=== PATIENT | female | born 1965 | race Caucasian/White ===

== ENCOUNTER 2021-03-03 17:05 | Emergency (ER) | payer SELFPAY ==
[2021-03-03 17:10] VITALS: BP 147/95; PULSE 86; RESP 20; TEMP 37.2; O2SAT 100
--- NOTE | 2021-03-03 17:26 | ED.FEMALEGU ---
HPI - Female Genitourinary General Chief complaint: Urogenital-Female Stated complaint: poss uti Time Seen by Provider: 03/03/21 17:26 Source: patient History of Present Illness HPI Narrative: Patient presents with burning with urination and frequency for the past 9 days. Patient denies any concern for STDs but does feel that she has bacterial vaginitis. Patient states she has a history of BV. And would like treated for today. No back pain no abdominal pain no pelvic pain no vaginal discharge. MD elicited complaint: dysuria and UTI Related Data Allergies Allergy/AdvReac Type Severity Reaction Status Date / Time egg Allergy Unknown Unknown Unverified 03/03/21 17:16 ibuprofen Allergy Unknown Palpitation Verified 03/03/21 17:28 s Sulfa (Sulfonamide Allergy Unknown Rash Verified 03/03/21 17:28 Antibiotics) albuterol Allergy Blister Verified 03/03/21 17:28 amoxicillin AdvReac Unknown Diarrhea Unverified 03/30/17 10:35 cephalexin AdvReac Unknown Diarrhea Verified 03/30/17 10:35 Review of Systems Review of Systems: CONSTITUTIONAL: Denies fever, chills, or sweats. EYES: Denies visual changes, redness, or discharge. ENT: Denies rhinorrhea, congestion, sore throat, or otalgia. CARDIOVASCULAR: Denies chest pain, palpitations, or edema. RESPIRATORY: Denies cough or dyspnea. GASTROINTESTINAL: Denies abdominal pain, nausea, vomiting, or diarrhea. GENITOURINARY: Denies dysuria or hematuria. SKIN: Denies rash or itching. MUSCULOSKELETAL: Denies back pain, joint pain, or myalgia. NEUROLOGIC: Denies headache, numbness, or weakness. PSYCHIATRIC: Denies anxiety or depression. PMFSH Social History Social History Smoking status: Never smoker Alcohol intake: never Comments At time of signature, agree with nursing past medical, surgical, social and family history. There is no relevant family history pertinent to the presenting complaint Exam Narrative: GENERAL: Well-appearing, well-nourished, and in no acute distress. HEAD: Normocephalic, atraumatic. EYES: PERRLA and EOMI. ENT: Nares clear, no rhinorrhea or epistaxis. Mucous membranes moist. NECK: Supple. CHEST: Clear to auscultation. No respiratory distress. HEART: Regular rate and rhythm. No murmur heard. Normal peripheral pulses. ABDOMEN: Soft, nontender, nondistended, normal active bowel sounds. EXTREMITIES: Normal range of motion. No edema. SKIN: Warm, dry, no rash. NEURO: No focal deficits. Alert and oriented x3. Rochert Coma Scale Eye Opening: Spontaneous 4 Shruti Coma Scale Motor: Obeys Commands 6 Rochert Coma Scale Verbal: Oriented 5 Shruti Coma Scale Total 15 Course Vital Signs Vital signs: Vital Signs Temperature 37.2 C 03/03/21 17:10 Pulse Rate 86 03/03/21 17:10 Respiratory Rate 20 03/03/21 17:10 Blood Pressure 147/95 H 03/03/21 17:10 Pulse Oximetry 100 03/03/21 17:10 Temperature 37.2 C 03/03/21 17:10 Pulse Rate 86 03/03/21 17:10 Respiratory Rate 20 03/03/21 17:10 Blood Pressure 147/95 H 03/03/21 17:10 Pulse Oximetry 100 03/03/21 17:10 Addressed elevated BP today. Today's blood pressure higher than recommended range. Discussed importance of follow -up with PCP and possible parts counterman effects/cardiovascular events related to HTN. Currently patient denies headache, dizziness, vision changes, CP or shortness of breath. Regarding diagnosis, Regarding diagnostic results, Regarding treatment plan, Regarding prescription, Patient indicated understanding of instructions. Critical dx considered and discussed with pt. Educated patient on red flag s/s and to go to ED if s/s occur. Discussed with pt when to return to [facility] or primary care provider. Pt gave verbal undertstanding, all questions were answered, and pt was agreeable to plan.. MDM - Female Genitourinary Differential Diagnosis Differential diagnosis: Likely urinary tract infection, bacterial vaginosis, trichomoniasis, cervicitis, ovarian cyst, vaginitis, ru
== END 2021-03-03 17:40 | disposition home or self-care (01) ==
PROVIDERS: Emergency Provider Nurse Practitioner Family; PCP Internal Medicine
DX: N39.0 Urinary tract infection, site not specified (principal); N76.0 Acute vaginitis; Z86.16 Personal history of COVID-19
CPT/HCPCS: 81003; 87077; 87086; 87088; 87186; 99203; G0463

== ENCOUNTER → 2021-04-18 10:35 | Outpatient (CLI) | payer SELFPAY ==
--- NOTE | ~2021-04-18 | XR_ITS ---
EXAMINATION: XR chest 2V EXAM DATE: 04/18/2021 10:58 INDICATION: Chest tightness, cough . TECHNIQUE: Frontal and lateral projections of the chest obtained and reviewed. There is no prior isabell dy for comparison. FINDINGS: The lungs are clear. There are no pleural effusions. The cardiomediastinal silhouette i s within normal limits. There is no pneumothorax suspected. The bones and soft tissues are unremark able. IMPRESSION: No acute cardiopulmonary findings. Reviewed, dictated and finalized at location A.
== END ==
PROVIDERS: PCP Nurse Practitioner; Visit Provider Nurse Practitioner
DX: R07.89 Other chest pain (principal); R05.9 Cough, unspecified
CPT/HCPCS: 71046

== ENCOUNTER → 2022-09-05 14:38 | Outpatient (CLI) | payer SELFPAY ==
--- NOTE | ~2022-09-05 | CT_ITS ---
EXAMINATION: CT cervical spine wo con DATE: 09/05/2022 15:02 INDICATION: Head injury TECHNIQUE: Computed tomography (CT) of the cervical spine was performed without intravenous contrast. The dose-length product (DLP) was 118.43 mGy-cm. Automated exposure control and iterative reconstruc tion technique were employed. COMPARISON: None FINDINGS: Bone alignment is normal. There is no fracture. There is moderate loss of intervertebral di sc space height at C5-C6 and mild loss of intervertebral disc space height at C4-5 and C6-7. The vert ebral body heights are maintained The odontoid process is intact. The prevertebral soft tissues are n ormal. Small degenerative osteophytes project from the anterior endplates of multiple vertebral vasyl s. There is multilevel mild facet and uncovertebral joint osteoarthritis. IMPRESSION: 1. Mild cervical spondylosis without acute findings. Reviewed, dictated and finalized at location F. AGE CALLER
--- NOTE | ~2022-09-05 | CT_ITS ---
EXAMINATION: CT brain wo con INDICATION: Head injury COMPARISON: None TECHNIQUE: Standard unenhanced head CT. The dose-length product (DLP) was 599.57 mGy-cm. The mA was a djusted according to patient size. Iterative reconstruction technique was employed. FINDINGS: There is no intracranial hemorrhage, acute infarction, or abnormal mass lesion. The ventric les are normal. There is no abnormal mass effect or midline shift. The grove-white matter differentiat ion is normal. The basal cisterns are patent. The orbits are normal. The paranasal sinuses, mastoids and calvarium are normal. IMPRESSION: 1. No acute intracranial abnormality. Reviewed, dictated and finalized at location F. CAR DISPATCHER
== END ==
PROVIDERS: Visit Provider Nurse Practitioner
DX: R51.9 Headache, unspecified (principal); V89.2XXD Person injured in unspecified motor-vehicle accident, traffic, subsequent encounter; M43.02 Spondylolysis, cervical region
CPT/HCPCS: 70450; 72125

== ENCOUNTER 2024-02-22 09:51 | Emergency (ER) | payer SELFPAY ==
--- NOTE | ~2024-02-22 | XR_ITS ---
EXAMINATION: XR chest 2V DATE: 02/22/2024 10:52 INDICATION: Chronic cough TECHNIQUE: PA and lateral views of the chest were obtained. COMPARISON: Chest radiograph dated 04/18/2021 FINDINGS: The lungs are clear with no focal airspace opacities, pulmonary edema, pleural effusion or pneumothor ax. The cardiomediastinal silhouette is normal. Bilateral breast implants. IMPRESSION: 1. No acute cardiopulmonary disease. Reviewed, dictated and finalized at location A.
[2024-02-22 10:06] VITALS: BP 136/81; PULSE 86; RESP 19; TEMP 36.8; O2SAT 100
[2024-02-22 10:38] LABS: EDINFLUASCREEN Negative; EDINFLUBSCREEN Negative
--- NOTE | 2024-02-22 10:46 | ED.URI ---
HPI - URI/Sore Throat General Chief Complaint: Upper Respiratory Infection Stated Complaint: hard to breathe when outdoors Time Seen by Provider: 02/22/24 10:28 Source: patient and RN notes reviewed Mode of arrival: ambulatory Limitations: no limitations History of Present Illness HPI Narrative: Patient presents today with a 1 month history of throat cough and chest tightness when she goes outside in the heat. Symptoms resolve when she comes inside in the air conditioning. States symptoms have been worsening for the past 2 weeks. At onset of symptoms, patient was seen at her PCPs office and she was given a Xopenex inhaler which she states is helpful. Associated symptoms include one-month history of congestion, 2 week history of postnasal drip. She also reports some chest wall pain with coughing. Denies history of asthma or COPD. Denies history of environmental allergies. Related Data Home Medications Medication Instructions Recorded Confirmed dextroamphetamine-amphetamine 10 10 mg PO DAILY 02/22/24 02/22/24 mg tablet (Adderall) levalbuterol tartrate 45 1 puff inhalation Q4-5H PRN 02/22/24 02/22/24 mcg/actuation aerosol inhaler wheezing or SOB Allergies Allergy/AdvReac Type Severity Reaction Status Date / Time albuterol Allergy Intermediate Blister Verified 02/22/24 10:27 egg Allergy Unknown Unknown Verified 02/22/24 09:54 ibuprofen Allergy Unknown Palpitation Verified 02/22/24 09:54 s Sulfa (Sulfonamide Allergy Unknown Rash Verified 02/22/24 09:54 Antibiotics) amoxicillin AdvReac Unknown Diarrhea Verified 02/22/24 09:54 cephalexin AdvReac Unknown Diarrhea Verified 02/22/24 09:54 clavulanic acid AdvReac Diarrhea Verified 02/22/24 10:30 [From Augmentin] Review of Systems Review of Systems: CONSTITUTIONAL: Denies body aches, fever, chills, or sweats. EYES: Denies visual changes, redness, or discharge. ENT: Denies rhinorrhea, sore throat, or otalgia.+ congestion, postnasal drip CARDIOVASCULAR: Denies chest pain, palpitations, or edema. RESPIRATORY: Denies dyspnea.+ cough, chest wall pain GASTROINTESTINAL: Denies abdominal pain, nausea, vomiting, or diarrhea. GENITOURINARY: Denies dysuria or hematuria. SKIN: Denies rash, itching, or wounds. MUSCULOSKELETAL: Denies back pain, joint pain, or myalgia. NEUROLOGIC: Denies headache, numbness, tingling, or weakness. PSYCH: Denies depression or anxiety. PMFSH Social History Social History Smoking status: Never smoker Alcohol intake: never Comments At time of signature, I have reviewed and agree with nursing past medical, surgical, social and family history unless otherwise noted. Please see nursing chart for further information. There is no relevant family history pertinent to the presenting complaint Exam Narrative: GENERAL: Well-appearing, well-nourished, and in no acute distress. HEAD: Normocephalic, atraumatic. EYES: EOMI. No redness or drainage. Conjunctivae normal. ENT: Mucous membranes pink and moist. Nares clear. No rhinorrhea. TMs normal bilaterally. Throat normal. Uvula midline. NECK: Normal AROM. Supple. No lymphadenopathy. CHEST: No respiratory distress. Clear to auscultation. HEART: Regular rate and rhythm. No murmur appreciated. EXTREMITIES: Normal range of motion. No edema. SKIN: Warm, dry, no rash. Capillary refill normal. Normal skin turgor. NEURO: No focal deficits. Alert and oriented x3. Gait steady. PSYCH: Normal affect. No signs of depression or anxiety. Course Course Level of Care: Express Care Visit Vital Signs Vital signs: Vital Signs Temperature 98.2 F 02/22/24 10:06 Pulse Rate 86 02/22/24 10:06 Respiratory Rate 19 02/22/24 10:06 Blood Pressure 136/81 02/22/24 10:06 Pulse Oximetry 100 02/22/24 10:06 Oxygen Delivery Room Air 02/22/24 10:06 Temperature 98.2 F 02/22/24 10:06 Pulse Rate 86 02/22/24 10
== END 2024-02-22 11:23 | disposition home or self-care (01) ==
PROVIDERS: Emergency Provider Nurse Practitioner
DX: J40 Bronchitis, not specified as acute or chronic (principal); Z20.822 Contact with and (suspected) exposure to COVID-19; Z86.16 Personal history of COVID-19
CPT/HCPCS: 71046; 87426; 87804; 99213; G0463

== ENCOUNTER 2024-03-16 08:36 | Emergency (ER) | payer SELFPAY ==
[2024-03-16 08:44] VITALS: BP 143/87; PULSE 84; RESP 20; TEMP 36.6; O2SAT 100
--- NOTE | 2024-03-16 08:51 | ED.EYEPROB ---
HPI - Eye Problem General Chief complaint: Eye Problems Stated complaint: Right Eye Irritation Time Seen by Provider: 03/16/24 08:51 Source: patient and RN notes reviewed Mode of arrival: ambulatory Limitations: no limitations History of Present Illness HPI Narrative: 58-year-old female presents with concern for right eyelid swelling and redness. Reports 5 days ago she woke up with a bump on her eyelid that she thought was a stye. She got this bump after using a new makeup. She reports she tried to pop it with tweezers without success. Reports the next day the upper and lower eyelid became red and swollen. She denies pain. She reports itching of the eyelid. She denies visual changes, eye redness, itching, pain. She reports she uses a warm compress which helps a swelling temporarily. MD chief complaint: other (eyelid swelling) Related Data Home Medications Medication Instructions Recorded Confirmed dextroamphetamine-amphetamine 10 10 mg PO DAILY 02/22/24 03/16/24 mg tablet (Adderall) levalbuterol tartrate 45 1 puff inhalation Q4-5H PRN 02/22/24 03/16/24 mcg/actuation aerosol inhaler wheezing or SOB Allergies Allergy/AdvReac Type Severity Reaction Status Date / Time albuterol Allergy Intermediate Blister Verified 03/16/24 08:39 egg Allergy Unknown Unknown Verified 03/16/24 08:39 ibuprofen Allergy Unknown Palpitation Verified 03/16/24 08:39 s Sulfa (Sulfonamide Allergy Unknown Rash Verified 03/16/24 08:39 Antibiotics) amoxicillin AdvReac Unknown Diarrhea Verified 03/16/24 08:39 cephalexin AdvReac Unknown Diarrhea Verified 03/16/24 08:39 clavulanic acid AdvReac Diarrhea Verified 03/16/24 08:39 [From Augmentin] Review of Systems Review of Systems: CONSTITUTIONAL: Denies malaise, chills, sweats, or fever. EYES: Denies visual changes. Denies eye redness, irritation, discharge. ENT: Denies rhinorrhea, congestion, sinus pain, otalgia or sore throat. SKIN: Reports right upper eyelid swelling, redness, and itching NEUROLOGIC: Denies numbness, weakness, or headache. PSYCHIATRIC: Denies anxiety or depression. All systems reviewed & are unremarkable except as noted in HPI and below PMFSH Social History Social History Smoking status: Never smoker Alcohol intake: never Comments At time of signature, agree with nursing past medical, surgical, social and family history. There is no relevant family history pertinent to the presenting complaint Exam Narrative: GENERAL: Well-appearing, well-nourished, and in no acute distress. HEAD: Normocephalic, atraumatic. EYES: PERRLA, sclera clear, and EOMI. No nystagmus. Bilateral conjunctivae and sclera clear. Left Upper and lower eyelid unremarkable, no periorbital edema noted. Right upper and lower eyelid mildly erythematous, edematous, slightly warm ENT: Nares clear. Mucous membranes moist. NECK: Supple. CHEST: No respiratory distress. Speaks in full sentences. HEART: Regular rate and rhythm. SKIN: Warm, dry, no visible rash. NEURO: Alert and oriented x3. PSYCH: Normal mood and affect Course Course Emergency Course: Patient is aware of diagnosis, understands and agrees to treatment plan. Anticipatory guidance given. Patient agrees to follow-up as directed and is aware of reasons to seek care at the emergency department. Portions of this record may have been created with voice recognition software Level of Care: [facility] Visit Vital Signs Vital signs: Vital Signs Temperature 98 F 03/16/24 08:44 Pulse Rate 84 03/16/24 08:44 Respiratory Rate 03/16/24 08:44 Blood Pressure 143/87 H 03/16/24 08:44 Pulse Oximetry 100 03/16/24 08:44 Oxygen Delivery Room Air 03/16/24 08:44 Temperature 98 F 03/16/24 08:44 Pulse Rate 84 03/16/24 08:44 Respiratory Rate 20 03/16/24 08:44 Blood Pressure 143/87 H 03/16/24 08:44 Pulse Oximetry 100 03/16/24 08
== END 2024-03-16 09:10 | disposition home or self-care (01) ==
PROVIDERS: Emergency Provider Nurse Practitioner
DX: A46 Erysipelas (principal); Z86.16 Personal history of COVID-19
CPT/HCPCS: 99213; G0463

== ENCOUNTER 2024-04-22 16:11 | Emergency (ER) | payer SELFPAY ==
--- NOTE | ~2024-04-22 | XR_ITS ---
XR chest 2V Ordering provider: Graciela Can APRN History: 58 years Female with . productive cough . Comparison: February 22, 2024 FINDINGS: MEDIASTINUM: The cardiac silhouette is not enlarged. LUNGS: No infiltrates, effusions or pneumothorax. OTHER: No free air under the diaphragm. IMPRESSION: No acute cardiopulmonary pathology. Reviewed, dictated and finalized at location A.
[2024-04-22 16:14] VITALS: BP 143/94; PULSE 94; RESP 19; TEMP 37.2; O2SAT 100
--- NOTE | 2024-04-22 16:48 | ED.URI ---
HPI - URI/Sore Throat General Chief Complaint: Upper Respiratory Infection Stated Complaint: Right Ear Irritation/Sinus Time Seen by Provider: 04/22/24 16:50 Source: patient, RN notes reviewed and old records reviewed Mode of arrival: ambulatory Limitations: no limitations History of Present Illness HPI Narrative: The patient presents with complaints of runny nose, cough, sinus congestion, chest congestion, productive cough. She reports intermittent fever. Symptoms have been present for about 7-10 days. She denies any shortness of breath. She is in no distress at this time. She has not been using any [id number] medications for her symptoms. No other concerns or complaints today with exception of noting some bright red blood from the right ear earlier today. She reports that is what prompted her to come Related Data Home Medications Medication Instructions Recorded Confirmed No Home Medications 04/22/24 04/22/24 Allergies Allergy/AdvReac Type Severity Reaction Status Date / Time albuterol Allergy Intermediate Blister Verified 04/22/24 16:24 egg Allergy Unknown Unknown Verified 04/22/24 16:24 ibuprofen Allergy Unknown Palpitation Verified 04/22/24 16:24 s Sulfa (Sulfonamide Allergy Unknown Rash Verified 04/22/24 16:24 Antibiotics) amoxicillin AdvReac Unknown Diarrhea Verified 04/22/24 16:24 cephalexin AdvReac Unknown Diarrhea Verified 04/22/24 16:24 clavulanic acid AdvReac Diarrhea Verified 04/22/24 16:24 [From Augmentin] Review of Systems Review of Systems: All systems reviewed & are unremarkable except as noted in HPI and below Constitutional: Constitutional: Reports as per HPI, Reports no additional constitutional complaints and Reports fever(s) ENT: Reports system reviewed and no additional complaints, except as documented, Reports as per HPI, Reports nasal congestion, Reports nasal discharge and Reports sinus pressure Comments: Blood from right ear Cardiovascular: Cardiovascular: Reports as per HPI and Reports no additional cardiovascular complaints Respiratory: Respiratory: Reports no additional respiratory complaints and Reports cough Gastrointestinal: Gastrointestinal: Reports no additional gastrointestinal complaints PMFSH Social History Social History Smoking status: Never smoker Alcohol intake: never Comments At the time of my signature, I reviewed and agree with the nursing past medical, surgical, social, and family history. There is no relevant family history pertinent to the patient complaint. Exam Const: General: cooperative, no acute distress, alert and awake Orientation/consciousness: oriented to person, oriented to place and oriented to time HENMT: Head: normal to inspection Ears: TM's normal bilaterally and Abnormal EAC present (Right ear canal with scratch noted at 9:00 o'clock position) other Mouth: Yes moist mucous membranes Throat: posterior oropharynx normal Resp: Effort & Inspection: normal respiratory effort and able to speak in complete sentences Auscultation: clear to auscultation bilaterally, no crackles, no rales, no rhonchi and no wheezes Cardio: Palpation: normal PMI Rate: regular rate Rhythm: regular rhythm Heart sounds: S1 normal heart sound present and S2 normal heart sound present Neuro: General: oriented to person, oriented to place and oriented to time Cranial nerves: Yes CN's II-XII intact bilaterally Psych: Appearance: grossly normal Thought process: Normal thought process present Insight: Good insight present (Psych) Judgement: Good judgement present (Psych) Course Course Level of Care: Express Care Visit Vital Signs Vital signs: Vital Signs Temperature 98.9 F 04/22/24 16:14 Pulse Rate 94 04/22/24 16:14 Respiratory Rate 19 04/22/24 16:14 Blood Pressure 143/94 H 04/22/24 16:14 Pulse Oximetry 100 04/22/24 16:14 Oxygen Delivery Room Air 04/22/24 1
== END 2024-04-22 17:38 | disposition home or self-care (01) ==
PROVIDERS: Emergency Provider Nurse Practitioner Family
DX: J06.9 Acute upper respiratory infection, unspecified (principal); Z86.16 Personal history of COVID-19
CPT/HCPCS: 71046; 99213; G0463

== ENCOUNTER 2024-08-30 10:54 | Emergency (ER) | payer SELFPAY ==
[2024-08-30 11:11] VITALS: BP 124/89; PULSE 92; RESP 16; TEMP 36.2; O2SAT 99
[2024-08-30 11:13] LABS: EDUAAPPEAR Clear; EDUABILI Negative (Negative); EDUABLOOD Negative (Negative); EDUACOLOR1 Yellow; EDUAGLUCOSE Negative (Negative); EDUAKETONE Negative (Negative); EDUALEUKO 1+ (Negative); EDUANITRATE Negative (Negative); EDUAPH 5.5; EDUAPROTEIN Negative (Negative); EDUASPGRAVITY 1.025; EDUAUROBILI 0.2
--- NOTE | 2024-08-30 11:20 | ED_ITS ---
HPI - Female Genitourinary General Chief complaint: Urogenital-Female Stated complaint: urinary issue Time Seen by Provider: 08/30/24 10:55 Source: patient Mode of arrival: ambulatory Limitations: no limitations History of Present Illness HPI Narrative: 59-year-old female presents to [facility] with complaints of urinary frequency for the past 5 days. Patient reports that she has been taking an unknown old antibiotic for the past 5 days and her symptoms have since improved. Patient reports that she completed an over the counter kit and is concerned about a urinary tract infection. Patient reports long history of frequent UTIs. patient denies vaginal bleeding, vaginal odor, vaginal discharge, back pain, nausea vomiting or diarrhea. Patient reports that she did start today with intermediate pain to the right side of her abdomen. Patient reports that she has not been drinking much water. MD elicited complaint: UTI Onset (ago): day(s) (5) Vaginal discharge: none Vaginal bleeding: none Urinary symptoms: Frequency Exacerbating factors: none Relieving factors: none Treatment prior to arrival: none Related Data Home Medications ?Medication ?Instructions ?Recorded ?Confirmed ?Last Taken ?Type No Home Medications 04/22/24 04/22/24 Unknown History Allergies Allergy/AdvReac Type Severity Reaction Status Date / Time albuterol Allergy Intermediate Blister Verified 08/30/24 11:05 egg Allergy Unknown Unknown Verified 08/30/24 11:05 ibuprofen Allergy Unknown Palpitation Verified 08/30/24 11:05 s Sulfa (Sulfonamide Allergy Unknown Rash Verified 08/30/24 11:05 Antibiotics) amoxicillin AdvReac Unknown Diarrhea Verified 08/30/24 11:05 cephalexin AdvReac Unknown Diarrhea Verified 08/30/24 11:05 clavulanic acid (From AdvReac Diarrhea Verified 08/30/24 11:05 Augmentin) Review of Systems Constitutional: Constitutional: Denies chills and Denies fatigue ENT: Denies dizziness, Denies nasal congestion and Denies sore throat Cardiovascular: Cardiovascular: Denies chest pain Respiratory: Respiratory: Denies cough, Denies dyspnea and Denies wheezing Gastrointestinal: Gastrointestinal: Reports abdominal pain, Denies diarrhea, Denies nausea and Denies vomiting Genitourinary: Genitourinary: Denies hematuria, Reports nocturia, Denies genital lesions, Denies dysuria, Denies flank pain and Denies urinary incontinence Integumentary/Breasts: Skin/Breast: Denies erythema, Denies rash and Denies skin ulcer PMFSH Social History Social History Smoking status: Never smoker Alcohol intake: never Comments At time of signature, I agree with nursing past medical, surgical, social and family history. There is no relevant family history pertinent to the presenting complaint. Exam Const: General: healthy appearing, no acute distress and alert Nutritional Appearance: well nourished Orientation/consciousness: patient oriented x3 Limitations: no limitations HENMT: Head: normal to inspection Eyes: Conjunctivae: conjunctivae normal Neck: Neck: normal visual inspection Resp: Effort & Inspection: normal respiratory effort and not labored Auscultation: clear to auscultation bilaterally, no crackles, no rales, no rhonchi and no wheezes Cardio: Rate: regular rate Rhythm: regular rhythm Heart sounds: no murmurs GI: Inspection: non-distended GI Palp: Yes Soft to palpation, Yes Tenderness to palpation present (GI) ( Mild tenderness), No Guarding due to palpation present (GI) and No Rigid due to palpation Other: Mild tenderness noted to right upper and right lower quadrant upon palpation. : General: Yes bladder normal to palpation and Yes no CVA tenderness Skin: General skin exam: normal color Rashes: no rashes Wounds: no wounds Neuro: General: patient oriented x3 and moves all extremities Cranial nerves: Yes Nystagmus not present Speech: normal speech Gait exam (Neuro): Normal gait present Extrem: General: normal to inspection Psych: Appearance: grossly normal Affect: normal affect Attitude: cooperative Course Course Level of Care: Express Care Visit Vital Signs Vital signs: Vital Signs Temperature 36.2 C L 08/30/24 11:11 Pulse Rate 92 08/30/24 11:11 Respiratory Rate 16 08/30/24 11:11 Blood Pressure 124/89 08/30/24 11:11 Pulse Oximetry 99 08/30/24 11:11 Oxygen Delivery Room Air 08/30/24 11:11 Temperature 36.2 C L 08/30/24 11:11 Pulse Rate 92 08/30/24 11:11 Respiratory Rate 16 08/30/24 11:11 Blood Pressure 124/89 08/30/24 11:11 Pulse Oximetry 99 08/30/24 11:11 Oxygen Delivery Room Air 08/30/24 11:11 MDM - Female Genitourinary MDM Narrative Medical decision making narrative: Discussed negative urinalysis results with patient. Urine culture obtained and sent to lab. Encouraged patient not to take old antibiotics and dispose of old medications in her home. Patient understands importance of monitoring abdominal pain closely and agrees to proceed to the emergency room for additional evaluation and imaging if symptoms would continue or worsen. Lab Data Attestation: I reviewed the patient's lab results. Labs: Lab Results 08/30/24 Range/Units 11:10 POC Urine Color Yellow POC Urine Clarity Clear POC Urine pH 5.5 POC Ur Specif [place] 1.025 POC Urine Protein Negative (Negative) POC Ur Glucose (UA) Negative (Negative) POC Urine Ketones Negative (Negative) POC Urine Blood Negative (Negative) POC Urine Nitrite Negative (Negative) POC Urine Bilirubin Negative (Negative) POC Urine Urobilinogen 0.2 POC U Leukocyte Esteras 1+ (Negative) Leukocytes negative; error on initial entry; urine culture obtained and sent to lab Critical Care Time Critical Care Time Critical Care Time: No Discharge Plan Discharge Clinical Impression: History of urinary frequency Patient Disposition: Home, Self-Care Condition: Stable Instructions: Urinary Urgency and Frequency (DC) Additional Instructions: increase water intake avoid taking old antibiotics and please dispose of all old medications from your home urine culture obtained and sent to lab; will call you if the antibiotic is needed Follow-up with primary care provider if symptoms do not improve Monitor abdominal pain very closely and proceed to the emergency room for additional evaluation and imaging if symptoms worsen Patient Language: Divehi Prescriptions: No Action No Home Medications Follow-up/Referrals: PHYSICIAN NOT ON STAFF,NONSTAFF [Primary Care Provider] - Time of Disposition: 11:27
== END 2024-08-30 11:30 | disposition home or self-care (01) ==
PROVIDERS: Emergency Provider Nurse Practitioner Family
DX: R35.0 Frequency of micturition (principal); Z86.16 Personal history of COVID-19
CPT/HCPCS: 81003; 87086; 99213; G0463

== ENCOUNTER 2024-09-18 08:13 | Emergency (ER) | payer SELFPAY ==
[2024-09-18 08:20] VITALS: BP 147/85; PULSE 97; RESP 20; TEMP 36.3; O2SAT 100
--- NOTE | 2024-09-18 08:26 | ED.FEMALEGU ---
HPI - Female Genitourinary General Chief complaint: Urogenital-Female Stated complaint: UTI Time Seen by Provider: 09/18/24 08:30 Source: patient Mode of arrival: ambulatory Limitations: no limitations History of Present Illness HPI Narrative: Se is a 59-year-old female patient presenting to the clinic today with complaints possible urinary tract infection. She reports she has had symptoms for over 1 month. Is developing some pain on the right side of her flank. Denies any fevers, chills, body aches. States she has burning with urination, frequency, and urgency. Related Data Allergies Allergy/AdvReac Type Severity Reaction Status Date / Time albuterol Allergy Intermediate Blister Verified 09/18/24 08:31 egg Allergy Unknown Unknown Verified 09/18/24 08:31 ibuprofen Allergy Unknown Palpitation Verified 09/18/24 08:31 s Sulfa (Sulfonamide Allergy Unknown Rash Verified 09/18/24 08:31 Antibiotics) amoxicillin AdvReac Unknown Diarrhea Verified 09/18/24 08:31 cephalexin AdvReac Unknown Diarrhea Verified 09/18/24 08:31 clavulanic acid (From AdvReac Diarrhea Verified 09/18/24 08:31 Augmentin) Review of Systems Review of Systems: Pertinent positives per HPI. Patient denies any fever, chills, rash, headache, visual changes, dizziness, cough, runny nose, sore throat, shortness of breath, chest pain, palpitations, nausea, vomiting, diarrhea, constipation, abdominal pain. PMFSH Social History Social History Smoking status: Never smoker Alcohol intake: never Comments At the time of my signature, I reviewed and agree with the nursing past medical, surgical, social, and family history. There is no relevant family history pertinent to the patient complaint. Exam Narrative: General: Well-developed, well nourished, in no apparent distress. Head: Normocephalic, atraumatic. Cardio: Regular rate and rhythm, s1 and s2 normal, no murmur appreciated. Resp: Clear to auscultation bilaterally, no rhonchi, rales, wheezing or rubs. Abdomen: Soft, pliable, bowel sounds present in all quadrants, non-tender to palpation, no organomegly, no CVAT tenderness. Course Course Emergency Course: Portions of this record may have been created with voice recognition software. Level of Care: Express Care Visit Vital Signs Vital signs: Vital Signs Temperature 36.3 C L 09/18/24 08:20 Pulse Rate 97 09/18/24 08:20 Respiratory Rate 20 09/18/24 08:20 Blood Pressure 147/85 H 09/18/24 08:20 Pulse Oximetry 100 09/18/24 08:20 Oxygen Delivery Room Air 09/18/24 08:20 Temperature 36.3 C L 09/18/24 08:20 Pulse Rate 97 09/18/24 08:20 Respiratory Rate 20 09/18/24 08:20 Blood Pressure 147/85 H 09/18/24 08:20 Pulse Oximetry 100 09/18/24 08:20 Oxygen Delivery Room Air 09/18/24 08:20 Vital signs reviewed MDM - Female Genitourinary MDM Narrative Medical decision making narrative: At the time of visit patient is resting comfortably on the exam table. Patient appears to be nontoxic. Labs: Urinalysis positive for protein, blood, and leukocytes. We will send urine for culture. Plan: I suspect patient has urinary tract infection possibly early pyelonephritis. Prescription for ciprofloxacin was sent to the pharmacy. Supportive measures were discussed with the patient and they voiced understanding discharge instructions and agrees to treatment plan. Return precautions reviewed Differential Diagnosis Differential diagnosis: Likely urinary tract infection, cystitis and other (Pyelonephritis) Lab Data Labs: Lab Results 09/18/24 Range/Units 08:27 POC Urine Color [place] POC Urine Clarity Cloudy POC Urine pH 5.5 POC Ur Specif [place] 1.030 POC Urine Protein 3+ (Negative) POC Ur Glucose (UA) Negative (Negative) POC Urine Ketones Negative (Negative) POC Urine Blood 3+ (Negative) POC Urine Nitrite Negative (Negative) POC Urine Bilirubin Negative (Negative) POC Urine Urobilinogen 0.2 POC U Leukocyte Esteras 1+ (Negative) Discharge Plan Discharge Clinical Impression: Urinary tract infection Patient Disposition: Home, Self-Care Condition: Stable Instructions: Antibiotic Form, Urinary Tract Infection in Women (ED) Additional Instructions: Urinalysis is positive for bacteria, blood, and protein. We will send urine for culture. Take ciprofloxacin as prescribed Recommend taking and daily probiotic hours before 2 hours after taking 1 of the antibiotic doses Increase fluids and stay well hydrated Wipe front to back. May use wet wipes. Avoid tub baths If sexually active- pee before and after intercourse. Wear cotton panties Avoid tight clothing up against the genitals Follow up with your PCP in 1 week if symptoms persist. Patient Language: Khmer Prescriptions: New ciprofloxacin HCl [Cipro] 500 mg tablet 500 mg PO Q12H 7 Days Qty: 14 0RF phenazopyridine [Pyridium] 200 mg tablet 200 mg PO TID PRN (Reason: pain) Qty: 6 0RF Follow-up/Referrals: UNKNOWN,DOCTOR [Primary Care Provider] - Time of Disposition: 08:43 Quality NIHSS Nursing Documentation ED NIHSS nursing documentation: reviewed/agree
[2024-09-18 08:29] LABS: EDUAAPPEAR Cloudy; EDUABILI Negative (Negative); EDUABLOOD 3+ (Negative); EDUACOLOR1 Amber; EDUAGLUCOSE Negative (Negative); EDUAKETONE Negative (Negative); EDUALEUKO 1+ (Negative); EDUANITRATE Negative (Negative); EDUAPH 5.5; EDUAPROTEIN 3+ (Negative); EDUAUROBILI 0.2
== END 2024-09-18 09:00 | disposition home or self-care (01) ==
PROVIDERS: Emergency Provider Nurse Practitioner Family
DX: N39.0 Urinary tract infection, site not specified (principal); B96.20 Unspecified Escherichia coli [E. coli] as the cause of diseases classified elsewhere; Z86.16 Personal history of COVID-19
CPT/HCPCS: 81003; 87086; 99213; G0463

== ENCOUNTER 2024-12-18 14:39 | Emergency (ER) | payer SELFPAY ==
[2024-12-18 14:48] VITALS: BP 129/90; PULSE 97; RESP 16; TEMP 36.9; O2SAT 97
--- NOTE | 2024-12-18 15:06 | ED_ITS ---
HPI - URI/Sore Throat General Chief Complaint: Upper Respiratory Infection Stated Complaint: sinus congestion Time Seen by Provider: 12/18/24 15:06 Source: patient, RN notes reviewed and old records reviewed Mode of arrival: ambulatory Limitations: no limitations History of Present Illness HPI Narrative: 59-year-old female with a 2 week history of sinus pain, pressure, nasal discharge, intermittent fevers Patient also reports right ear pressure. States for the last 3 days only she has taken Benadryl and Tylenol. Prior to that he she has not taken any thing for her symptoms. Onset (ago): week(s) (2) Related Data Allergies Allergy/AdvReac Type Severity Reaction Status Date / Time albuterol Allergy Intermediate Blister Verified 12/18/24 14:52 egg Allergy Unknown Unknown Verified 12/18/24 14:52 ibuprofen Allergy Unknown Palpitation Verified 12/18/24 14:52 s Sulfa (Sulfonamide Allergy Unknown Rash Verified 12/18/24 14:52 Antibiotics) amoxicillin AdvReac Unknown Diarrhea Verified 12/18/24 14:52 cephalexin AdvReac Unknown Diarrhea Verified 12/18/24 14:52 clavulanic acid (From AdvReac Diarrhea Verified 12/18/24 14:52 Augmentin) Review of Systems Review of Systems: All systems reviewed & are unremarkable except as noted in HPI and below Constitutional: Constitutional: Reports no additional constitutional complaints ENT: Reports as per HPI Cardiovascular: Cardiovascular: Reports no additional cardiovascular complaints, Denies chest pain and Denies dyspnea Respiratory: Respiratory: Reports no additional respiratory complaints, Denies chest congestion, Denies cough and Denies dyspnea Musculoskeletal: Musculoskeletal: Reports no additional musculoskeletal complaints Integumentary/Breasts: Skin/Breast: Reports system reviewed and no additional complaints, except as docu PMFSH Social History Social History Smoking status: Never smoker Alcohol intake: never Comments At the time of my signature, I reviewed and agree with the nursing past medical, surgical, social, and family history. There is no relevant family history pertinent to the patient complaint. Exam Const: General: cooperative, healthy appearing, comfortable, no acute distress, well developed, alert and well nourished Nutritional Appearance: well nourished Orientation/consciousness: patient oriented x3 Limitations: no limitations HENMT: Head: normal to inspection Ears: hearing grossly normal bilaterally, external ears normal, TM's normal bilaterally, EAC's normal, mastoids normal and no periauricular adenopathy Face/Nose/Sinus: Normal external nose present, Abnormal mucous membranes and turbinates present boggy and erythematous, Nasal discharge present clear and sinus tenderness Face and sinus: normal facial exam and face symmetric Mouth: Yes Normal oral and palatal mucosa present, Yes lip normal, Yes tongue normal and Yes moist mucous membranes Throat: posterior oropharynx normal, uvula midline and no uvular edema Eyes: General: appearance normal, both eyes and all related structures Alignment and Position: alignment normal Neck: Neck: normal visual inspection, full ROM, no lymphadenopathy and no meningeal signs Chest: Chest palpation & inspection: normal inspection of the chest Resp: Effort & Inspection: normal respiratory effort and able to speak in complete sentences Auscultation: clear to auscultation bilaterally, no crackles, no rales, no rhonchi and no wheezes Cardio: Rate: regular rate Skin: General skin exam: normal color and no rashes or lesions noted Neuro: General: patient oriented x3, gait normal, moves all extremities and no meningeal signs Cognition (Neuro): normal cognition Speech: normal speech Gait exam (Neuro): Normal gait present Extrem: General: normal to inspection, full ROM, capillary refill normal and normal gait Psych: Appearance: grossly normal and well kempt Mental Status: mental status grossly normal Speech and movement: Normal speech and movement present and Clear speech present Affect: normal affect Attitude: cooperative Course Course Level of Care: Express Care Visit Vital Signs Vital signs: Vital Signs Temperature 98.5 F 12/18/24 14:48 Pulse Rate 97 12/18/24 14:48 Respiratory Rate 16 12/18/24 14:48 Blood Pressure 129/90 12/18/24 14:48 Pulse Oximetry 97 12/18/24 14:48 Oxygen Delivery Room Air 12/18/24 14:48 Temperature 98.5 F 12/18/24 14:48 Pulse Rate 97 12/18/24 14:48 Respiratory Rate 16 12/18/24 14:48 Blood Pressure 129/90 12/18/24 14:48 Pulse Oximetry 97 12/18/24 14:48 Oxygen Delivery Room Air 12/18/24 14:48 Reviewed MDM - URI/Sore Throat MDM Narrative Medical decision making narrative: Patient sitting in exam room. Patient is nontoxic, vitals stable. Patient presents for 2 weeks of history of sinus pain, pressure. Patient exam consistent with sinusitis Patient appropriate for outpatient treatment with close follow-up Discharge instructions reviewed with patient, as well as provided in writing per nursing staff. The instructions also include specific and strict return/GO TO THE ER as well as f/u information. All questions have been answered, and the patient deny any further questions with discharge and discharge plan. Some parts of this dictation were generated by voice recognition software and may contain typographical and/or grammatical inaccuracies. Differential Diagnosis Differential diagnosis: Likely upper respiratory infection, otitis media, sinusitis, viral infection, bronchitis, influenza and pharyngitis Critical Care Time Critical Care Time Critical Care Time: No Discharge Plan Discharge Clinical Impression: Sinusitis Patient Disposition: Home Condition: Stable Instructions: Antibiotic Form, Sinusitis (ED) Additional Instructions: It is very important to treat your symptoms. Drink plenty of water, Gatorade, Pedialyte, ice pops or Jell-O. -Alternate Tylenol and Motrin per package directions for fever or pain. You can alternate every 4 hours -Antihistamine medication such as Zyrtec/Claritin/Maria Alejandra during the day can help improve symptoms. -doing daily nasal irrigations can help relieve pressure your sinuses. Things like a Neti pot -Use Flonase twice a day for 5 days then daily to help reduce the inflammation and dry up your sinuses. -You can also use Mucinex. Be sure to drink plenty of water with this medication at least 8 ounces with every dose and it is important to drink 8 to 10 glasses of water per day. Water is a natural decongestant -Frequent hand washing or hand surgical services tech is one of the best ways to prevent spread of infection. -Using a vaporizer or humidifier at night will also help thin secretions and help with coughing up phlegm. -Follow up with primary care provider in 7-10 days if condition is not improving - For new or worsening symptoms go directly to the nearest ER Patient Language: Hungarian Prescriptions: New doxycycline monohydrate 100 mg tablet 100 mg PO BID Qty: 14 0RF Follow-up/Referrals: Kristie,LORNA Mariano [Primary Care Provider] - Stand Alone Forms: Work/School Release IP Time of Disposition: 15:17
== END 2024-12-18 15:20 | disposition home or self-care (01) ==
PROVIDERS: Emergency Provider Nurse Practitioner; PCP Nurse Practitioner
DX: J32.9 Chronic sinusitis, unspecified (principal); Z86.16 Personal history of COVID-19
CPT/HCPCS: 99213; G0463

== ENCOUNTER 2024-12-30 08:18 | Emergency (ER) | payer SELFPAY ==
[2024-12-30 08:29] VITALS: BP 148/93; PULSE 88; RESP 20; TEMP 36.4; O2SAT 100
--- NOTE | 2024-12-30 08:30 | ED_ITS ---
HPI - General Adult General Chief complaint: Urogenital-Female Stated complaint: UTI Source: patient Mode of arrival: ambulatory Limitations: no limitations History of Present Illness HPI narrative: patient is a 59-year-old female presenting with complaint of urinary symptoms. She reports cloudy urine, hematuria, low back pain x2 weeks. Reports fever with T-max of 101? yesterday. No treatments initiated prior to arrival. Reports history of UTI approximately every 3-4 months. Denies evaluation by urologist. No concern for STI or . No additional complaints. Related Data Allergies Allergy/AdvReac Type Severity Reaction Status Date / Time albuterol Allergy Intermediate Blister Verified 12/30/24 08:26 egg Allergy Unknown Unknown Verified 12/30/24 08:26 ibuprofen Allergy Unknown Palpitation Verified 12/30/24 08:26 s Sulfa (Sulfonamide Allergy Unknown Rash Verified 12/30/24 08:26 Antibiotics) amoxicillin AdvReac Unknown Diarrhea Verified 12/30/24 08:26 cephalexin AdvReac Unknown Diarrhea Verified 12/30/24 08:26 clavulanic acid (From AdvReac Diarrhea Verified 12/30/24 08:26 Augmentin) Review of Systems Review of Systems: CONSTITUTIONAL: Denies body aches, chills, or sweats. EYES: Denies visual changes, redness, or discharge. ENT: Denies rhinorrhea, congestion, sore throat, or otalgia. CARDIOVASCULAR: Denies chest pain, palpitations, or edema. RESPIRATORY: Denies cough or dyspnea. GASTROINTESTINAL: Denies abdominal pain, nausea, vomiting, or diarrhea. GENITOURINARY: Denies discharge SKIN: Denies rash, itching, or wounds. MUSCULOSKELETAL: Denies joint pain, or myalgia. NEUROLOGIC: Denies headache, numbness, tingling, or weakness. PSYCH: Denies depression or anxiety. All systems reviewed & are unremarkable except as noted in HPI and below PMFSH Social History Social History Smoking status: Never smoker Alcohol intake: never Exam Narrative: GENERAL: Well-appearing, well-nourished, and in no acute distress. HEAD: Normocephalic, atraumatic. EYES: EOMI. No redness or drainage. Conjunctivae normal. ENT: Mucous membranes pink and moist. NECK: Normal AROM. Supple. No lymphadenopathy. CHEST: No respiratory distress. HEART: Normal rate. ABDOMEN: Soft, nontender, nondistended, normal active bowel sounds. no CVAT MUSCULOSKELETAL: No bony tenderness. EXTREMITIES: Normal range of motion. No edema. SKIN: Warm, dry, no rash. Capillary refill normal. Normal skin turgor. NEURO: No focal deficits. Alert and oriented x3. Gait steady. PSYCH: Normal affect. No signs of depression or anxiety. Course Course Emergency Course: Please be advised this is a medical document. It is intended for [id number] communication. It is written in medical language and may contain unfamiliar abbreviations or verbiage. Medical documents are intended to carry relevant information, facts as evident, and the clinical opinion of the practitioner at the time of the encounter. This dictation may have been done utilizing a voice recognition system. Attempts have been made to correct errors. However, there may be uncorrected grammatical, spelling, and recognition errors present. Level of Care: Express Care Visit Vital Signs Vital signs: Vital Signs Temperature 97.5 F L 12/30/24 08:29 Pulse Rate 88 12/30/24 08:29 Respiratory Rate 20 12/30/24 08:29 Blood Pressure 148/93 H 12/30/24 08:29 Pulse Oximetry 100 12/30/24 08:29 Oxygen Delivery Room Air 12/30/24 08:29 Temperature 97.5 F L 12/30/24 08:29 Pulse Rate 88 12/30/24 08:29 Respiratory Rate 20 12/30/24 08:29 Blood Pressure 148/93 H 12/30/24 08:29 Pulse Oximetry 100 12/30/24 08:29 Oxygen Delivery Room Air 12/30/24 08:29 Medical Decision Making Vital Signs Vital Signs: Vital Signs Temperature 97.5 F L 12/30/24 08:29 Pulse Rate 88 12/30/24 08:29 Respiratory Rate 20 12/30/24 08:29 Blood Pressure 148/93 H 12/30/24 08:29 Pulse Oximetry 100 12/30/24 08:29 Oxygen Delivery Room Air 12/30/24 08:29 Temperature 97.5 F L 12/30/24 08:29 Pulse Rate 88 12/30/24 08:29 Respiratory Rate 20 12/30/24 08:29 Blood Pressure 148/93 H 12/30/24 08:29 Pulse Oximetry 100 12/30/24 08:29 Oxygen Delivery Room Air 12/30/24 08:29 Lab Data Labs: Lab Results 12/30/24 Range/Units 08:32 POC Urine Color Yellow POC Urine Clarity Cloudy POC Urine pH 5.5 POC Ur Specif [place] 1.025 POC Urine Protein 3+ (Negative) POC Ur Glucose (UA) Negative (Negative) POC Urine Ketones Negative (Negative) POC Urine Blood 2+ (Negative) POC Urine Nitrite Negative (Negative) POC Urine Bilirubin Negative (Negative) POC Urine Urobilinogen 0.2 POC U Leukocyte Esteras 1+ (Negative) Discharge Plan Discharge Clinical Impression: Dysuria, Elevated blood pressure reading in office with white coat syndrome, without diagnosis of hypertension Patient Disposition: Home Condition: Stable Instructions: Antibiotic Form, Dysuria (ED) Additional Instructions: Go straight to ER should your symptoms become worse or should any new symptoms develop Patient Language: [place] Prescriptions: New nitrofurantoin monohyd/m-cryst [Macrobid] 100 mg capsule 100 mg PO Q12H 5 Days Qty: 10 0RF Rx Instructions: must administer with a meal/food Follow-up/Referrals: Kristie,LORNA Mariano [Primary Care Provider] - 12/30/24 Time of Disposition: 08:35
[2024-12-30 08:45] LABS: EDUAAPPEAR Cloudy; EDUABILI Negative (Negative); EDUABLOOD 2+ (Negative); EDUACOLOR1 Yellow; EDUAGLUCOSE Negative (Negative); EDUAKETONE Negative (Negative); EDUALEUKO 1+ (Negative); EDUANITRATE Negative (Negative); EDUAPH 5.5; EDUAPROTEIN 3+ (Negative); EDUASPGRAVITY 1.025; EDUAUROBILI 0.2
== END 2024-12-30 08:52 | disposition home or self-care (01) ==
PROVIDERS: Emergency Provider Registered Nurse; PCP Nurse Practitioner
DX: R30.0 Dysuria (principal); R03.0 Elevated blood-pressure reading, without diagnosis of hypertension
CPT/HCPCS: 81003; 87086; 87186; 99213; G0463